=== PATIENT | male | born 1995 | race African-American/Black ===

== ENCOUNTER 2016-11-09 15:33 | Emergency (ER) | payer SELFPAY ==
[~2016-11-09] VITALS: Ht 180.3 cm; Wt 77.0 kg
[2016-11-09] MEDS ORDERED: PENICILLIN G BENZATHINE 2,400,000 UNITS/4ML SYR IM ONE (19:15)
[2016-11-09 19:55] VITALS: BP 135/85
[2016-11-09 20:00] LABS: CHLORIDE 102 mEq/L (98-107)
[2016-11-09 20:01] LABS: HEMATOCRIT. 42.9 % (42.0-52.0); HEMOGLOBIN. 14.5 g/dL (14.0-18.0); MEAN CORPUSCULAR HEMOGLOBIN 30.6 pg (28.0-32.0); MEAN CORPUSCULAR VOLUME 90.7 fL (80.0-94.0); MEAN PLATELET VOLUME 8.3 fl (7.4-10.4); PLATELET 243 x1000/uL (130-400); RED BLOOD CELL COUNT 4.74 mill/uL (4.7-6.1); RED CELL DISTRIBUTION WIDTH 13.5 % (11.6-14.6)
[2016-11-09 20:07] LABS: CARBON DIOXIDE 30 mEq/L (21-32)
[2016-11-09] MEDS ORDERED: PENICILLIN G BENZATHINE 1,200,000 UNITS/2ML SYR IM NR (20:15)
[2016-11-09 20:57] LABS: ATYPICAL LYMPHOCYTES 3; PLATELET ESTIMATE NORMAL
== END 2016-11-09 20:35 | disposition home or self-care (01) ==
LOC: ER 16:38
DX: A53.9 Syphilis, unspecified (principal); F17.210 Nicotine dependence, cigarettes, uncomplicated; F12.10 Cannabis abuse, uncomplicated
CPT/HCPCS: 36415; 80053; 85025; 86592; 86593; 86780; 96372; 99284; J0561; Z7610